=== PATIENT | male | born 1995 | race Caucasian/White ===

== ENCOUNTER 2018-05-30 16:26 | Emergency (ER) | payer OTHER ==
[~2018-05-30] VITALS: Ht 175.3 cm; Wt 84.8 kg
== END 2018-05-30 18:04 | disposition home or self-care (01) ==
LOC: ER 16:26
DX: S01.82XA Laceration with foreign body of other part of head, initial encounter (principal); V09.9XXA Pedestrian injured in unspecified transport accident, initial encounter; Y93.19 Activity, other involving water and watercraft; Y92.89 Other specified places as the place of occurrence of the external cause; Y99.8 Other external cause status